=== PATIENT | male | born 1995 ===

== ENCOUNTER 2020-07-21 04:24 | Outpatient (CLI) | payer BC, SELFPAY ==
[2020-07-23 13:09] LABS: SARS-CoV-2 RNA Undetected (Undetected); SARS-CoV-2 Specimen Source Nasopharynx
== END 2020-07-21 04:44 ==
PROVIDERS: PCP Internal Medicine; Visit Provider Family Medicine
DX: Z20.828 Contact with and (suspected) exposure to other viral communicable diseases (principal)
CPT/HCPCS: U0003